=== PATIENT | female | born 1965 | race Caucasian/White ===

== ENCOUNTER → 2017-11-16 07:54 | Outpatient (CLI) | payer OTHER, SELFPAY ==
--- NOTE | 2017-11-16 | BRBX_PTH ---
PATIENT: EDMUNDO LI LOC: [facility] U#:[id number] AGE/SX: 59/F ROOM: RE11/16/[address]: Dr. Sun Berumen MD : 1965 BED: DIS: SPEC #: [id number] RECD: 11/16/17 11:51 STATUS: AXEL PEDRITO #: [id number] RUDI: 11/16/17 00:[address]: Sun Berumen DEPT: SURGICAL PATHOLOGY RECD BY: Robby Rabago Tissues: Left breast, NOS Procedures: Surgery Specimen Level IV HEADER OPERATION: Left stereotactic breast biopsy PRE-OP DIAGNOSIS: Left breast 9 o?clock position microcalcifications TISSUE SUBMITTED: Left breast tissue ISCHEMIC TIME: 2 minutes FIXATION TIME: 59 hours MICROSCOPIC DIAGNOSIS Left breast, 9 o?clock position microcalcifications, stereotactic core biopsy: Fragments of benign breast tissue with focal ductal dilation. Negative for atypia or malignancy. Microcalcifications are not identified.. SJ:manju 11/19/17 COMMENT Correlation with clinical, readiologic findings and appropriate follow up are necessary. MICROSCOPIC DESCRIPTION Slides are reviewed. GROSS DESCRIPTION Received is one container labeled with the patient's name and not further designated. The specimen consists of multiple elongated fragments of louise-yellow fibroadipose tissue that in aggregate measure 5 x 3 x 0.3 cm. The entire specimen is submitted in two cassettes. / AQUILINO:manju 11/16/17 TC:5 CPT: 91926
--- NOTE | 2017-11-16 10:36 | PCM.OPRPT ---
Report of Operation Date of Procedure: 11/16/17 Pre-Operative Diagnosis: abnormal calcifications on mammograms of left breast Post-Operative Diagnosis: same Surgery/Procedure Performed:: left stereotactic breast biopsy Description of Surgical Findings:: very superficial calcifications of left breast, centrally located Type of Anesthesia:: Local - 1% xylocaine Specimen's removed: left breast tissue Estimated Blood Loss (mL): minimal Fluids Replaced: none Description of Procedure: After informed consent was given, the patient was brought into the breast biopsy suite. Appropriate time out protocol was followed. She was then placed in the prone position on the stereotactic biopsy table. The patients left breast was then placed at the opening at the head of the table. A head chopper compression mammogram was then obtained in the medial-lateral view. The abnormal calcifications were then identified. Stereo pictures of the lesion were then taken for XYZ coordinates. The Mammotome biopsy stylus was then positioned where it would be entering into the patients breast. The skin at this site was then cleansed with a surgical skin preparation. The skin and subcutaneous tissues at this site were then infiltrated with 1% xylocaine. A small skin incision was made with an 11 blade scalpel. The biopsy stylus was then positioned into the patients breast at the proper coordinates of depth. Using the Mammotome vacuum-assist device, several core samples of breast tissue were obtained. A specimen mammogram was the obtained and revealed that the suspicious lesion was within the specimen. A hemostatic marker clip was then placed into the biopsy cavity and a head chopper film revealed that it was properly deployed. The patient was then placed in the supine position and pressure was applied to the breast until no active bleeding was noted. A nylon suture was placed to reapproximate the skin. A unilateral mammogram in the CC and MLO view were then taken which revealed that the marker clip was in the same area as the previous suspicious lesion. The patient tolerated the procedure well and was discharged from the breast biopsy suite in good condition. - Complications none noted
== END ==
PROVIDERS: Visit Provider Surgery
DX: R92.8 Other abnormal and inconclusive findings on diagnostic imaging of breast (principal); I10 Essential (primary) hypertension; F41.9 Anxiety disorder, unspecified; E66.09 Other obesity due to excess calories; Z68.37 Body mass index [BMI] 37.0-37.9, adult; Z79.51 Long term (current) use of inhaled steroids; Z79.899 Other long term (current) drug therapy
CPT/HCPCS: 19081; 88305; J7050